=== PATIENT | female | born 1935 | race Caucasian/White ===

== ENCOUNTER 2023-01-13 11:45 | Outpatient (CLI) | payer MEDICARE ==
[~2023-01-13 11:45] MED LIST: Magnevist 469MG/ML 20 ML VIAL ONE
== END 2023-01-13 11:46 | disposition home or self-care (01) ==
LOC: MRI 11:45
PROVIDERS: ATTEND Neurological Surgery
DX: S24.101A Unspecified injury at T1 level of thoracic spinal cord, initial encounter (principal); M54.2 Cervicalgia; M48.04 Spinal stenosis, thoracic region; M24.28 Disorder of ligament, vertebrae; R90.89 Other abnormal findings on diagnostic imaging of central nervous system; Z98.890 Other specified postprocedural states
CPT/HCPCS: 72156; 72157; A9579